=== PATIENT | male | born 1980 | race American Indian/Alaskan Native ===

== ENCOUNTER 2016-12-26 14:36 | Emergency (ER) | payer MEDICARE ==
[2016-12-26 16:14] VITALS: BP 123/79
--- NOTE | 2016-12-26 18:02 | Emergency Department Report ---
Entered by PHIL BYRD, acting as scribe for DRE PETERSON PA. ED Rash HPI - HPI Chief Complaint: Skin/Abscess/Foreign Body Stated Complaint: BLOOD PRESSURE/LEFT ARM Time Seen by Provider: 12/26/16 17:24 Duration: 3 Days Location: Back (left upper) Suspected Cause: Other (Hx of similar rash) Rash Symptoms: Yes Itching, No Facial Swelling, No Tongue/Oral Swelling, No Breathing Difficulties, No Choking Sensation, No Wheezing/Dyspnea, No Peeling, No Blistering, No Fever, No Lightheaded, No Malaise, No Myalgias Severity: mild Other History: 36 year old male with a PMHx of 2 CVA episodes presents to the ED c/o of a rash on his upper left upper that began 3 days ago. Associated symptoms includes itching, but he denies itching, SOB, wheezing, nausea, vomiting, and purulent drainage. Notes he's had similar rashes in the past. NKDA. ED Review of Systems ROS: Stated complaint: BLOOD PRESSURE/LEFT ARM Other details as noted in HPI Comment: All other systems reviewed and negative Constitutional: denies: chills, fever Respiratory: denies: cough, orthopnea, shortness of breath, SOB with exertion, SOB at rest, stridor Cardiovascular: denies: chest pain, palpitations, dyspnea on exertion, orthopnea Gastrointestinal: denies: nausea, vomiting Skin: rash (upper left back), other (itching around rash) Neurological: denies: headache, numbness ED Past Medical Hx - Past Medical History Hx CVA: Yes (2012) Additional medical history: Pain left arm on and off - Surgical History Additional Surgical History: Brain Surgeries X 2 - Social History Smoking Status: Current Every Day Smoker Substance Use Type: None - Medications Home Medications: Home Medications Medication Instructions Recorded Confirmed Last Taken Type Cephalexin [Keflex] 500 mg PO QID #40 capsule 12/26/16 Unknown Rx Triamcinolone Acetonide 15 gm TP BID PRN #15 oint...g. 12/26/16 Unknown Rx [Triamcinolone Acetonide Oint 0.5%] Rash Exam - Exam General: Vital signs noted. No distress. Alert and acting appropriately. General: well nourished, well developed, nontoxic in appearance, in no acute distress HEENT: No Periorbital Edema, No Conjuctival Injection, No Chemosis, No Perioral Edema, No Tongue Edema, No Uvular Edema, No Compromised Airway, No Drooling Lungs: Yes Good Air Exchange, No Wheezes, No Ronchi, No Stridor, No Cough, No Labored Respirations, No Retractions, No Use of Accessory Muscles, No Other Abnormal Lung Sounds Heart: Yes Regular, No Murmur Skin: Yes Maculopapular Rash (hyperpigmented rash on left upper back), No Urticarial Rash, No Morbilliform rash, No Bulla(e), No Excoriations, No Weeping , No Tenderness, No Erythema, No Edema, No Encrustations Other: Positive: Abdomen Normal, Neurologic Normal, Musculoskeletal Normal ED Course Vital Signs 12/26/16 16:07 Temperature 98.0 F Pulse Rate 92 H Respiratory 20 Rate Blood Pressure 123/79 O2 Sat by Pulse 99 Oximetry ED Medical Decision Making - Medical Decision Making Patient was evaluated in fast track area of ED by this provider. Patient presented with a rash on left upper back for 3 days. Patient is in no acute distress at this time. He will be discharged home with a prescription for Keflex and cream to apply to rash. He is instructed to follow up with a cpc coder if symptoms persist. Patient verbalized understanding. He is encouraged to return to the emergency room for any worsening symptoms. Critical care attestation.: If time is entered above; I have spent that time in minutes in the direct care of this critically ill patient, excluding procedure time. ED Disposition Clinical Impression: Rash of back Disposition: DISCHARGED TO HOME OR SELFCARE Is pt being admited?: No Does the pt Need Aspirin: No Condition: Stable Instructions: Acute Rash (ED) Additional Instructions: Please take antibiotics as prescribed. Also please use the triamcinolone cream to the rash twice a day follow-up with the cpc coder for further evaluation. Prescriptions: Cephalexin [Keflex] 500 mg PO QID #40 capsule Triamcinolone Acetonide [Triamcinolone Acetonide Oint 0.5%] 15 gm TP BID PRN # 15 oint...g. PRN Reason: Rash Referrals: PRIMARY CARE, [Primary Care Provider] - 3-5 Days KARIN CLEANING MD [Staff Physician] - 3-5 Days THALIA NGUYEN MD [Staff Physician] - 3-5 Days Forms: Work/School Release Form(ED) This documentation as recorded by the bgibeROCHELLE JASMINE,accurately reflects the service I personally performed and the decisions made by me, DRE PETERSON, PA.
== END 2016-12-26 18:20 | disposition home or self-care (01) ==
LOC: ED 14:36
DX: R21 Rash and other nonspecific skin eruption (principal); Z86.73 Personal history of transient ischemic attack (TIA), and cerebral infarction without residual deficits; F17.200 Nicotine dependence, unspecified, uncomplicated
CPT/HCPCS: 99282

== ENCOUNTER 2022-01-05 12:04 | Emergency (ER) | payer MEDICARE ==
[2022-01-05 12:31] VITALS: BP 114/78
== END 2022-01-05 15:00 | disposition home or self-care (01) ==
LOC: ED 12:04
DX: Z00.00 Encounter for general adult medical examination without abnormal findings (principal); Z53.21 Procedure and treatment not carried out due to patient leaving prior to being seen by health care provider